=== PATIENT | male | born 1995 | race Caucasian/White ===

== ENCOUNTER → 2016-09-15 | Outpatient (CLI) | payer OTHER | END | disposition home or self-care (01) | LOC: EDBD → C.RDSM 13:30 | PROVIDERS: ATTEND Family Medicine Sports Medicine | DX: M25.561 Pain in right knee (principal) ==

== ENCOUNTER → 2016-09-21 | Outpatient (CLI) | payer OTHER ==
--- NOTE | 2016-09-21 11:20 | DIAGNOSTIC IMAGING REPORT ---
RIGHT KNEE MRI HISTORY: RIGHT KNEE PAIN Right COMPARISON STUDY: Right knee 09/15/2016. TECHNIQUE: Multiplanar multisequence MRI of the right knee was performed according to standard department protocol without the use of contrast. FINDINGS: Menisci: The medial and lateral menisci are intact. Ligaments: Full-thickness ACL tear. The PCL and LCL are intact. There is edema surrounding the intact MCL consistent with a grade I MCL injury (sprain). Extensor mechanism: The quadriceps tendon and patellar ligament are intact. Articular cartilage and bone: Patchy areas of marrow edema within the lateral femoral condyle and lateral tibial plateau consistent with bone contusions. No acute fracture or dislocation. Cartilage spaces are maintained. Joint effusion: Small. Soft tissues: Mild soft tissue edema at the posterior joint space and medially. IMPRESSION: 1. Full-thickness ACL tear. 2. Grade I MCL injury (sprain). 3. Small lateral femoral condyle and lateral tibial plateau bone contusions. No fractures. 4. Small joint effusion. Electronically signed by: Milad Mahajan M.D. 09/21/2016 11:19 AM Dictated Date/Time: 09/21/2016 11:15 AM
== END | disposition home or self-care (01) ==
LOC: C.MRI 09:50 → EDBD 10:00
PROVIDERS: ATTEND Family Medicine Sports Medicine
DX: M25.561 Pain in right knee (principal); S83.511A Sprain of anterior cruciate ligament of right knee, initial encounter; S83.411A Sprain of medial collateral ligament of right knee, initial encounter; T14.8 Other injury of unspecified body region; M25.461 Effusion, right knee

== ENCOUNTER 2017-08-18 12:08 | Emergency (ER) | payer BC, OTHER ==
[~2017-08-18] VITALS: Ht 185.4 cm; Wt 77.0 kg
[2017-08-18 12:09] VITALS: TEMP 36.7; Ht 185.4 cm; Wt 77.0 kg
[2017-08-18] MEDS ORDERED: XYLOCAINE 1%/SOD BICARB 20 ML VIAL INFIL ONE (12:30)
[2017-08-18 13:07] VITALS: BP 125/62; PULSE 62; O2SAT 96
--- NOTE | 2017-08-18 16:27 | EMERGENCY ROOM VISIT NOTE ---
ED Visit Note First contact with patient: 12:12 Chief complaint: Chin laceration HPI: This 22-year-old white male presents for evaluation of a laceration on the tip of his chin that occurred last night. The patient was walking and tripped, falling on his face. This occurred around midnight. Bleeding was controlled with pressure. They deny any numbness, tingling, or loss of consciousness. He denies any neck pain. He does state that the left jaw is mildly sore. He has been chewing gum without difficulty. No other complaints. A female friend accompanies him today. Tetanus is believed to be up-to-date. Pain is 1/10. It is now 12 hours since injury. Supplemental sheet was reviewed and signed. Previous surgeries: ACL reconstruction December 2016 Medical history: Significant for asthma Current Medications: None Allergies: NKDA Tetanus: 2011 Family History: Significant for cancer. Parents are living. Social History: [employer] student. Lives with roommates. Employed. No tobacco use, occasional EtOH use. REVIEW OF SYSTEM: HEENT: No dizziness, visual problems, hearing loss, or tinnitus. There is no difficulty swallowing and no oral lesions are present. PULMONARY: No cough, shortness of breath, sputum production or hemoptysis. CARDIOVASCULAR: No chest pain, palpitations, shortness of breath or peripheral edema. GASTROINTESTINAL: No diarrhea, constipation, nausea, vomiting, or abdominal pain. GENITOURINARY: No dysuria, frequency, urgency or nocturia. NEUROLOGIC: No weakness, muscle tenderness, epilepsy or history of neurological problems. MUSCULOSKELETAL: No history of joint tenderness/swelling. No history of arthritis or arthralgias. SKIN: No rashes or lesions. PSYCHIATRIC: No history of depression or mental illness. ENDOCRINE: No history of diabetes, thyroid disorders, or abnormal hair growth. Physical Exam: Vitals: Afebrile. Reviewed and found in patient's chart General: Well-developed, well-nourished, young white male, in no acute distress. No obvious discomfort. He is sitting on the bed. Alert and oriented. Skin: Warm and dry with good turgor. No rashes. No ecchymosis or erythema. The patient is not diaphoretic. No abrasions. The patient has a 2 cm laceration on the right lower chin. There is some minor debris through the wound. This was removed with forceps. HEENT: Patient is supple motion of the mandible. No disruption of the teeth. No chipped or fractured teeth. Musculoskeletal: Patient has full range of motion of the neck. Neurologic: Gross sensation is intact across the face and neck by soft touch. Impression: 2 cm chin laceration Procedure: Informed oral consent was obtained for repair. Chin was prepped with Betadine and draped with a sterile towel. Area was anesthetized using 3 mL 1% plain buffered lidocaine and a direct infiltration. Thorough inspection was performed. Disrupted hair roots were removed. Wound was irrigated using normal sterile saline under jet spray lavage. Wound was closed using 5-0 nylon. Good wound edge approximation was achieved. Hemostasis was achieved. Plan: Patient was educated regarding today's findings. Conservative care measures were discussed. Cleanse the wound daily with soap and water and reapply a small amount of bacitracin. Ice and elevate intermittently as needed for discomfort. Tylenol and ibuprofen every 6 hours as needed for pain. Wound care handout was provided. Sutures out in 7 days. He may shower. Avoid soaking or swimming for two weeks. Return to the ER for any acute changes or signs of infection. Current/Historical Medications No Active Prescriptions or Reported Meds Allergies Coded Allergies: No Known Allergies (Unverified , 08/18/17) Vital Signs Date Time Temp Pulse Resp B/P (MAP) Pulse Ox O2 Delivery O2 Flow Rate FiO2 08/18/17 13:07 62 14 125/62 96 08/18/17 12:09 36.7 81 16 123/67 96 Departure Information Impression Primary Impression: Chin laceration Dispostion Home / Self-Care Prescriptions No Active Prescriptions or Reported Meds Forms HOME CARE DOCUMENTATION FORM, MOTRIN USE, TYLENOL USE, IMPORTANT VISIT INFORMATION Patient Instructions My [facility] Additional Instructions Cleanse the wound daily with soap and water Avoid swimming or soaking for 2 weeks you may shower and wash your face Tylenol and Motrin every 6 hours as needed for discomfort Sutures out in 7 days Return to the ED for any acute changes or signs of infection
== END 2017-08-18 13:06 | disposition home or self-care (01) ==
LOC: C.EDB 12:09 → C.EDD 13:06
DX: S01.81XA Laceration without foreign body of other part of head, initial encounter (principal); W18.09XA Striking against other object with subsequent fall, initial encounter; J45.909 Unspecified asthma, uncomplicated; Z80.9 Family history of malignant neoplasm, unspecified

== ENCOUNTER 2017-08-27 15:11 | Emergency (ER) | payer BC ==
[~2017-08-27] VITALS: Ht 185.4 cm; Wt 81.2 kg
[2017-08-27 15:29] VITALS: BP 147/76; PULSE 66; TEMP 36.6; O2SAT 99; Ht 185.4 cm; Wt 81.2 kg
--- NOTE | 2017-08-27 15:43 | EMERGENCY ROOM VISIT NOTE ---
ED Visit Note First contact with patient: 15:31 CHIEF COMPLAINT: Suture removal This patient returns to the ED today for removal of sutures that were placed 9 days ago. There has been no swelling, redness, or drainage from the wound. The patient feels like the laceration is healing well. REVIEW OF SYSTEMS: Head: No headache, injury or neck pain. Skin: No rash, new lesions, or masses. General: No fever or chills, fatigue, loss of appetite , or significant recent weight gain or loss. PMH: Reviewed and unchanged from prior visit. SOCIAL HISTORY: Patient lives at home. PHYSICAL EXAM: Vital Signs: Reviewed Nurse's notes. There is a sutured wound on the right side of the chin with no signs of infection. There is no erythema , swelling, or tenderness. EMERGENCY DEPARTMENT COURSE: The sutures were removed without any difficulty and there was no separation of the wound edges. DIAGNOSIS: Healing laceration and suture removal DISCHARGE INSTRUCTIONS AND TREATMENT: Wash any remaining crusts off of the wound today and resume your normal activities. Current/Historical Medications No Active Prescriptions or Reported Meds Allergies Coded Allergies: No Known Allergies (Unverified , 08/18/17) Vital Signs Date Time Temp Pulse Resp B/P (MAP) Pulse Ox O2 Delivery O2 Flow Rate FiO2 08/27/17 15:29 36.6 66 18 147/76 99 Room Air Departure Information Impression Primary Impression: Encounter for removal of sutures Prescriptions No Active Prescriptions or Reported Meds Referrals No Doctor, Assigned (PCP) Patient Instructions [facility]
== END 2017-08-27 15:39 | disposition home or self-care (01) ==
LOC: C.EDB 15:12 → C.EDD 15:39
DX: Z48.02 Encounter for removal of sutures (principal); S01.81XD Laceration without foreign body of other part of head, subsequent encounter; X58.XXXD Exposure to other specified factors, subsequent encounter